=== PATIENT | female | born 1950 | race Caucasian/White ===

== ENCOUNTER 2018-01-10 00:14 | Inpatient (IN) ==
--- NOTE | 2018-01-10 00:39 | ED ---
HPI General Chief complaint: Neck Pain/Injury Stated complaint: transfer Time Seen by Provider: 01/10/18 00:16 Source: patient and EMS Mode of arrival: EMS Limitations: no limitations History of Present Illness HPI narrative: Patient is a 67-year-old female who comes in as a transfer from [facility] due to traumatic injury. She fell at home and was found to have a cervical spine fracture. Patient is demented, but she is awake and alert. She has no complaints currently. She denies numbness or tingling to her extremities. She is in a c-collar. She was accepted as a transfer by Dr. Keita. Related Data Home Medications Medication Instructions Recorded Confirmed albuterol sulfate [ProAir HFA] 2 puff INHALATION Q4-6H PRN 01/10/18 01/10/18 amlodipine 5 mg PO DAILY 01/10/18 01/10/18 aspirin 162.5 mg PO DAILY 01/10/18 01/10/18 citalopram 20 mg PO DAILY 01/10/18 01/10/18 lorazepam 0.5 mg PO DAILY PRN 01/10/18 01/10/18 losartan 100 mg PO DAILY 01/10/18 01/10/18 metformin 500 mg PO DAILY 01/10/18 01/10/18 metoprolol succinate 50 mg PO DAILY 01/10/18 01/10/18 Allergies Allergy/AdvReac Type Severity Reaction Status Date / Time methylprednisolone Allergy UNKOWN Verified 01/10/18 00:28 Review of Systems ROS: all other systems reviewed are negative Constitutional Denies chills and Denies fever(s) ENT Denies dizziness and Denies headache(s) Cardiovascular Denies chest pain and Denies dyspnea Respiratory Denies cough Gastrointestinal Denies abdominal pain Genitourinary Denies dysuria Musculoskeletal Denies myalgias, Denies arthralgias and Denies neck pain Integumentary/Breasts Denies lesions and Denies sores Neurologic Denies focal weakness, Denies numbness and Denies paresthesias [facility] Medical History Medical History Dementia (Acute) Social History Social History Substance History: No History of Abuse Smoking Status: Unknown if ever smoked How Often Do You Have a Drink Containing Alcohol: Monthly or less Immunization History Tetanus Immunization: Unsure Hx Influenza Vaccine This Season: No Exam Narrative Exam Narrative: GENERAL: Awake and alert, no acute distress. SKIN: Focused skin assessment warm/dry. No infection or wounds. HEAD: Atraumatic. Normocephalic. EYES: Pupils equal and round. No scleral icterus. Extraocular movements intact. ENT: Mucous membranes pink and moist. NECK: Trachea midline. No JVD. CARDIOVASCULAR: Regular rate and rhythm. No murmur appreciated. RESPIRATORY: No accessory muscle use. Clear to auscultation. Breath sounds equal bilaterally. GASTROINTESTINAL: Abdomen soft, non-tender, nondistended. MUSCULOSKELETAL: No obvious deformities. No clubbing. No cyanosis. No edema. NEUROLOGICAL: Awake and alert. No obvious cranial nerve deficits. Motor grossly within normal limits. Normal speech. PSYCHIATRIC: Appropriate mood and affect; insight and judgment normal. Course Initial Documented Vital Signs Temperature 98.0 F 01/10/18 00:19 Pulse Rate 77 01/10/18 00:19 Respiratory Rate 16 01/10/18 00:19 Blood Pressure 186/82 H 01/10/18 00:19 Pulse Oximetry 94 L 01/10/18 00:19 Last Documented Vital Signs Temperature 98.2 F 01/10/18 02:52 Pulse Rate 66 01/10/18 02:52 Respiratory Rate 22 01/10/18 02:52 Blood Pressure 145/62 H 01/10/18 02:52 Pulse Oximetry 93 L 01/10/18 02:52 Medical Decision Making MDM Narrative Medical decision making narrative: Patient is a 67-year-old female who comes in as a transfer from [facility]. She is currently wearing a cervical collar. She is moving all of her extremities. CTA of the neck ordered. Patient admitted to the trauma service. Medical Screen Exam Complete: Yes Emergency Medical Condition: Yes Differential Diagnosis Differential Diagnosis: Spine fracture versus nerve injury versus UTI Lab Data Lab results reviewed: Yes I reviewed the patient's lab results. Lab Results 01/10/18 01/10/18 Range/Units 00:00 02:00 Urine Color Yellow (Yellw/Straw) Urine Clarity Cloudy H (Clear) Urine pH 7.0 (5.0-8.5) Ur Specific [place] 1.012 (1.002-1.035) Urine Protein 30 H (Neg-Trace) mg/dL Urine Glucose (UA) Negative (Negative) mg/dL Urine Ketones Negative (Negative) mg/dL Urine Occult Blood Negative (Negative) Urine Nitrate Negative (Negative) Urine Bilirubin Negative (Negative) Urine Urobilinogen 2.0 H (Less than 2) mg/dL Ur Leukocyte Esterase Trace H (Negative) Urine RBC 1 (0-3) /hpf Urine WBC 11 H (0-5) /hpf Ur Squamous Epith Cells 1 (0-5) /hpf Urine Bacteria Occasional H (None) /hpf Urine Mucus Few H (Occasional) /lpf Micro UA Comment Cath-culture ind Ur Microscopic Review Not Reportable Urine Culture Comments Cath-cult indicated Nasal Screen MRSA (PCR) Not detected (Negative) Imaging Data Radiologist's impression: Cervical Spine CT 01/10/18 00:39 CONCLUSION: 1. Comminuted C2 fracture that is essentially a type II but does have a component that extends left laterally through the foramen transversarium. There is also 6 mm of anterior displacement of the dens relative to the C2 vertebral body. 2. Degenerative changes as detailed above. Neck CTA 01/10/18 00:39 CONCLUSION: 1. 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 The right vertebral artery is the sole supply to the basilar artery. It does contain a 50-60% stenosis at its origin. 2. Stenosis involving the right subclavian artery. 3. Patent carotid arteries bilaterally. 4. See the cervical spine fracture discussed in the CT of the cervical spine report. Discharge Plan Discharge Disposition Patient Disposition: 30 Still Patient Discharge Condition Condition: Stable Discharge Details Diagnosis: C2 cervical fracture Physicians Team ED Provider: Heydi Hartmann Attending Provider: Charlotte Keita Other Providers: Yifan Johnson Discharge Interventions Interventions: ED Discharge Assessment Last Done: 01/10/18 02:04 Vital Signs Last Done: 01/10/18 02:04 Status ED Status: Left Department Discharge Information Discharge Date/Time: 01/10/18 01:50
[2018-01-10] MEDS ORDERED: Bisacodyl 10 MG Supp RECTAL PRN (00:49)
[2018-01-10] MEDS ORDERED: Morphine Sulfate Inj 2 MG/ML Vial IV.PUSH PRN (00:55)
[2018-01-10 01:38] LABS: Bacteria,Urine Occasional /hpf; Bilirubin,Urine Negative (Negative); Clarity,Urine Cloudy (Clear); Color,Urine Yellow (Yellw/Straw); Glucose,Urine (UA) Negative (Negative); Leukocyte Esterase,Urine Trace (Negative); Mucus,Urine Few /lpf (Occasional); Nitrite,Urine Negative (Negative); Specific Gravity,Urine 1.012 (1.002-1.035); Squamous Epithelial Cell,Urine 1 /hpf (0-5)
[2018-01-10] MEDS: Sod Chloride 0.9% Inj 1,000 ML IV.CONT SCH ×2 (01:47→15:52)
--- NOTE | 2018-01-10 02:02 | CT ---
EXAM DATE: 01/10/2018 1:38 AM EDT AGE/SEX: 67 years / Female INDICATIONS: Transfer from [place], C-1 and C-2 fracture. C4-7 compression fractures. CLINICAL DATA: This is the patient's initial encounter. Patient reports that signs and symptoms have been present for 1 day and indicates a pain score of 3/10. MEDICAL/SURGICAL HISTORY: Dementia. None. RADIATION DOSE: . CTDI (mGy) ; Reconstructed from previous dataset, no dose COMPARISON: No prior exams available for comparison. TECHNIQUE: Contiguous axial images were obtained using helical multi-row detector technique. Data s ets were acquired after intravenous administration of 74 ml Omnipaque 350 (iohexol) nonionic water-s oluble contrast as a single exam dose.. The volumetric data was post-processed with multiplanar matilda nstruction in oblique axial, sagittal and coronal planes. Using automated exposure control and adjust ment of the mA and/or kV according to patient size, radiation dose was kept as low as reasonably achi evable to obtain optimal diagnostic quality images. DICOM format image data is available electronica [facility] for review and comparison. FINDINGS: Vertebrae: There is an acute comminuted odontoid fracture. The fractures largely a type II fracture but there is a secondary component to the fracture that extends laterally towards the left into the l ateral mass extending through the foramen transverse serum. There is anterior displacement of the den s relative to the C2 vertebral body measuring 6 mm of anterior displacement. The remaining vertebral bodies are intact. Alignment: Normal. No subluxation. Post Contrast: No abnormal areas of enhancement are seen in the cord, dural or paraspinal regions. C2-3: The bony spinal canal is normal in size. No evidence of disc bulge or herniation. The neural foramina are bilaterally patent. C3-4: Mild central bulge. Central canal and neural foramina are patent bilaterally. C4-5: No significant bulge or protrusion. Prominent bony uncovertebral hypertrophy generates narrowi ng of the left lateral recess. Right lateral recess is patent. Mild narrowing of the neural foramina bilaterally. C5-6: There is considerable disc space narrowing with no significant bulge or protrusion. Prominent bony uncovertebral hypertrophy generates narrowing of the lateral recesses bilaterally but more prono unced on the right. Severe left and moderate right neural foraminal narrowing noted.. C6-7: Significant disc space narrowing. No bulge or protrusion. Central canal is patent. Neural fora heather are patent.. C7-T1: The bony spinal canal is normal in size. No evidence of disc bulge or herniation. The neura l foramina are bilaterally patent. CONCLUSION: 1. Comminuted C2 fracture that is essentially a type II but does have a component that extends left laterally through the foramen transversarium. There is also 6 mm of anterior displacement of the dens relative to the C2 vertebral body. 2. Degenerative changes as detailed above. Electronically signed by: Les Baca MD 01/10/2018 2:01 AM EDT
--- NOTE | 2018-01-10 03:42 | CT ---
EXAM DATE: 01/10/2018 3:18 AM EDT AGE/SEX: 67 years / Female INDICATIONS: Transfer form [place]. C-1 and C-2 fracture, C4-7 compression fracture. CLINICAL DATA: This is the patient's initial encounter. Patient reports that signs and symptoms have been present for 1 day and indicates a pain score of 3/10. MEDICAL/SURGICAL HISTORY: Dementia. None. RADIATION DOSE: 10.61 CTDI (mGy) COMPARISON: [facility] [place], [place] CERVICAL SPINE W CONTRAST, 01/10/2018.. . TECHNIQUE: Volumetric scanning was performed using a multirow detector CT scanner during bolus infus ion of 74 ml Omnipaque 350 (iohexol) nonionic water-soluble contrast as a single exam dose. The da ta was postprocessed with a variety of visualization algorithms including full-volume maximum intensi ty projection, multiplanar sliding thin-slab reformation, curved-planar reformation, and surface-rend ering techniques. Using automated exposure control and adjustment of the mA and/or kV according to p atient size, radiation dose was kept as low as reasonably achievable to obtain optimal diagnostic damián lity images. DICOM format image data is available electronically for review and comparison. FINDINGS: Aortic Arch: There is a three-vessel origin of the great vessels from the aorta. No evidence of ost ial narrowing. Calcified plaque involving the origin of the right subclavian artery generates a signi ficant stenosis. Right Carotid: Calcified atherosclerotic plaque involving the carotid bulb and proximal ICA. No murray nal narrowing utilizing NASCET criteria. The extracranial ICA is quite tortuous but patent. The ECA a nd CCA are patent.. Left Carotid: Calcified atherosclerotic plaque involving the carotid bulb and proximal ICA. No lumin al narrowing utilizing NASCET criteria. The extracranial ICA is quite tortuous but patent. The ECA an d CCA are patent.. Vertebrals: The left vertebral artery is chronically occluded. There is intermittent short segment r econstitution within the cervical segments. The right vertebral artery is the sole supply to the basi lar artery. The right vertebral artery shows calcified plaque at its origin generating a 50-60% steno sis.. Percent stenosis is calculated using the diameter of the stenotic region over the diameter of the nor mal distal internal carotid artery. CONCLUSION: 1. Chronic occlusion of the left vertebral artery with short segment reconstitution throughout the c ervical regions. The right vertebral artery is the sole supply to the basilar artery. It does contain a 50-60% stenosis at its origin. 2. Stenosis involving the right subclavian artery. 3. Patent carotid arteries bilaterally. 4. See the cervical spine fracture discussed in the CT of the cervical spine report. Electronically signed by: Les Baca MD 01/10/2018 3:41 AM EDT
[2018-01-10] MEDS ORDERED: Chlorhexidine Gluconate 2% 1 Pack (2 Cloths) TOPICAL PRN (04:00)
[2018-01-10] MEDS: Chlorhexidine Gluconate 2% 1 Pack (2 Cloths) TOPICAL SCH (06:51)
[2018-01-10] MEDS ORDERED: Dextrose 50% in Water 50 ML Vial IV.PUSH PRN (07:12)
--- NOTE | 2018-01-10 07:54 | P.HPCC ---
History of Present Illness Primary Care Physician: Kalia Gomes History of Present Illness: 67 y.o female with hx of dementi and other medical issues -fell yesterday and transferred from the [facility].She underwent a CT scan of the neck showing a C2 fx-she is neuro intact,HD normal. Inpatient Certification: I certify that the inpatient services were ordered in accordance with Medicare regulations governing the order. This includes certification that hospital inpatient services are reasonable and necessary and in the case of services not specified as inpatient-only under 42 CFR 419.22(n), that they are appropriately provided as inpatient services in accordance to with the 2-midnight benchmark under 43 CFR 412.3(e) Estimated Total Length of Stay (Days): 4 Plans for Post Hospital Care: Home Review of Systems All other systems reviewed negative except as stated in HPI [facility] - History History Provided By: Patient - Medical History Medical History: Medical History (Last Reviewed 01/10/18 @ 06:41 by Heydi Hartmann MD) Dementia - Tobacco History Smoking Status: Unknown if ever smoked - Alcohol History How Often Do You Have a Drink Containing Alcohol: Monthly or less - Substance Use History Substance History: No History of Abuse - Immunization History Tetanus Immunization: Unsure Hx Influenza Vaccine This Season: No Medications and Allergies Active Medications: Active Medications Al Hydroxide/Mg Hydroxide (Milk Of Diane Liq) 30 ml PO Q12H PRN PRN Reason: Mild Constipation Albuterol (Duoneb Neb (Prn)) 1 ampul NEB Q2HR NEB PRN PRN Reason: SHORTNESS OF BREATH/WHEEZING Amlodipine Besylate (Norvasc) 5 mg PO DAILY BAUDILIO Bisacodyl (Dulcolax Supp) 10 mg RECTAL DAILY PRN PRN Reason: SEVERE CONSITIPATION Chlorhexidine Gluconate (Chlorhexidine 2% Cloth) 3 pack TOPICAL DAILY@0400 PRN PRN Reason: Extra cloth needed Stop: 01/15/18 03:59 Chlorhexidine Gluconate (Chlorhexidine 2% Cloth) 3 pack TOPICAL DAILY@0400 BAUDILIO Stop: 01/15/18 03:59 Last Admin: 01/10/18 06:51 Dose: 3 pack Citalopram Hydrobromide (Celexa) 20 mg PO DAILY BAUDILIO Dextrose (D50w Vial) 50 ml IV.PUSH UNSCH PRN PRN Reason: PER HYPOGLYCEMIA PROTOCOL Enalaprilat (Vasotec Inj) 1.25 mg IV.PUSH Q6H PRN PRN Reason: SBP>180, DBP>95 Famotidine (Pepcid Pf Inj) 20 mg IV.PUSH Q12HR BAUDILIO Glucagon (Glucagon Inj) 1 mg OTHER PRN PRN PRN Reason: for Hypoglycemia Protocol Sodium Chloride (Ns Inj) 1,000 mls @ 84 mls/hr IV.CONT .[id number] BAUDILIO Last Admin: 01/10/18 01:47 Dose: 84 mls/hr Acetaminophen (Ofirmev Inj) 1,000 mg in 100 mls @ 400 mls/hr IV.SIG Q6H PRN PRN Reason: PAIN 1-10 AND/OR FEVER >101F Last Admin: 01/10/18 07:41 Dose: 400 mls/hr Insulin Human Regular (Novolin R Correctional Sugar Inj) 0 units SQ ACHS BAUDILIO; Protocol Lactulose (Lactulose Liq) 30 ml PO DAILY PRN PRN Reason: SEVERE CONSITIPATION Losartan Potassium (Cozaar) 100 mg PO DAILY [facility] Metoprolol Succinate (Toprol Xl) 50 mg PO DAILY [facility] Morphine Sulfate (Morphine Inj) 2 mg IV.PUSH Q3H PRN PRN Reason: BREAKTHROUGH PAIN Ondansetron HCl (Zofran Inj) 4 mg IV.PUSH Q6H PRN PRN Reason: NAUSEA OR VOMITING Senna/Docusate Sodium (Magalie-Colace) 1 tab PO BID [facility] Sennosides (Senokot) 17.2 mg PO Q12H PRN PRN Reason: Moderate Constipation Sodium Chloride (Ns Flush) 2 ml IV.FLUSH BID [facility] Sodium Chloride (Ns Flush) 2 ml IV.FLUSH PRN PRN PRN Reason: FLUSH AFTER USING IV ACCESS Allergies Allergy/AdvReac Type Severity Reaction Status Date / Time methylprednisolone Allergy UNKOWN Verified 01/10/18 00:28 Home Medications Medication Instructions Recorded Confirmed Type albuterol sulfate [ProAir HFA] 2 puff INHALATION Q4-6H PRN 01/10/18 01/10/18 History amlodipine 5 mg PO DAILY 01/10/18 01/10/18 History aspirin 162.5 mg PO DAILY 01/10/18 01/10/18 History citalopram 20 mg PO DAILY 01/10/18 01/10/18 History lorazepam 0.5 mg PO DAILY PRN 01/10/18 01/10/18 History losartan 100 mg PO DAILY 01/10/18 01/10/18 History metformin 500 mg PO DAILY 01/10/18 01/10/18 History metoprolol succinate 50 mg PO DAILY 01/10/18 01/10/18 History Results - Labs Labs: Urine 01/10/18 Range/Units 00:00 Urine Color Yellow (Yellw/Straw) Urine Clarity Cloudy H (Clear) Urine pH 7.0 (5.0-8.5) Ur Specific [place] 1.012 (1.002-1.035) Urine Protein 30 H (Neg-Trace) mg/dL Urine Glucose (UA) Negative (Negative) mg/dL - Imaging Impressions Cervical Spine CT 01/10/18 00:39 CONCLUSION: 1. Comminuted C2 fracture that is essentially a type II but does have a component that extends left laterally through the foramen transversarium. There is also 6 mm of anterior displacement of the dens relative to the C2 vertebral body. 2. Degenerative changes as detailed above. Neck CTA 01/10/18 00:39 CONCLUSION: 1. 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 The right vertebral artery is the sole supply to the basilar artery. It does contain a 50-60% stenosis at its origin. 2. Stenosis involving the right subclavian artery. 3. Patent carotid arteries bilaterally. 4. See the cervical spine fracture discussed in the CT of the cervical spine report. Exam Vital signs: Vital Signs 01/10/18 00:19 01/10/18 02:04 01/10/18 02:36 Temperature 98.0 F Pulse Rate 77 85 68 Respiratory Rate 16 16 Blood Pressure 186/82 H 169/69 H Pulse Oximetry 94 L 01/10/18 02:52 01/10/18 04:00 Temperature 98.2 F 98.2 F Pulse Rate 66 68 Respiratory Rate 22 34 H Blood Pressure 145/62 H 183/79 H Pulse Oximetry 93 L 92 L Intake & Output 01/09/18 01/10/18 01/10/18 18:59 06:59 18:59 Output Total 800 / 800 Balance -800 / -800 Weight 74.8 kg Output: Urine Amount (Catheter) 800 / 800 Indwelling Urethral Catheter 800 / 800 Other: Weight On Admission 74.8 kg - Routine HEENT Exam Head: Present: normocephalic, atraumatic Eye: Present: EOMI, PERRL ENT: Present: mucous membranes moist, oropharynx clear, nares patent - Routine Neck Exam Present: supple, tenderness, trachea midline - Routine Respiratory Exam Present: CTA bilaterally - Routine Cardiovascular Exam Present: RRR - Routine Abdominal Exam Present: soft, normoactive bowel sounds - Routine Extremities Exam Present: full ROM - Routine Skin Exam Present: intact, dry - Routine Neurological Exam Present: alert, moving all extremities, normal tone, normal speech (GCS 14 - baseline dementia) Caprini VTE Risk Assessment Caprini VTE Risk Assessment: Moderate/High Risk (score >= 2) (c2 fx) Caprini Risk Assessment Model: Point Value = 1 Point Value = 2 Point Value = 3 Point Value = 5 Age 41-60 Minor surgery BMI > 25 kg/m2 Swollen legs Varicose veins or History of unexplained or recurrent spontaneous Oral contraceptives or hormone replacement Sepsis (< 1 month) Serious lung disease, including pneumonia (< 1 month) Abnormal pulmonary function Acute myocardial infarction Congestive heart failure (< 1 month) History of inflammatory bowel disease Medical patient at bed rest Age 61-74 Arthroscopic surgery Major open surgery (> 45 min) Laparoscopic surgery (> 45 min) Malignancy Confined to bed (> 72 hours) Immobilizing plaster cast Central venous access Age >= 75 History of VTE Family history of VTE Factor V Leiden Prothrombin [id number] Lupus anticoagulant Anticardiolipin antibodies Elevated serum homocysteine Heparin-induced thrombocytopenia Other congenital or acquired thrombophilia Stroke (< 1 month) Elective arthroplasty Hip, pelvis, or leg fracture Acute spinal cord injury (< 1 month) Prophylaxis Regimen: Total Risk Factor Score Risk Level Prophylaxis Regimen 0-1 Low Early ambulation 2 Moderate Order ONE of the following: *Sequential Compression Device (SCD) *Heparin 5000 units SQ BID 3-4 Higher Order ONE of the following medications: *Heparin 5000 units SQ TID *Enoxaparin/Lovenox 40 mg SQ daily (WT < 150 kg, CrCl > 30 mL/min) *Enoxaparin/Lovenox 30 mg SQ daily (WT < 150 kg, CrCl > 10-29 mL/min) *Enoxaparin/Lovenox 30 mg SQ BID (WT < 150 kg, CrCl > 30 mL/min) AND/OR *Sequential Compression Device (SCD) 5 or more Highest Order ONE of the following medications: *Heparin 5000 units SQ TID (Preferred with Epidurals) *Enoxaparin/Lovenox 40 mg SQ daily (WT < 150 kg, CrCl > 30 mL/min) *Enoxaparin/Lovenox 30 mg SQ daily (WT < 150 kg, CrCl > 10-29 mL/min) *Enoxaparin/Lovenox 30 mg SQ BID (WT < 150 kg, CrCl > 30 mL/min) AND *Sequential Compression Device (SCD) Assessment and Plan - Assessment and Plan Plan: C2 fx type 2 neuro intact admit ISC pain control Sierra Flores Collar swallow study NS consult H&P: Quality - VTE Deep Vein Thrombosis/Pulmonary Embolism Present on Admission: No
[2018-01-10 08:15] LABS: Baso % (Auto) 0.4 % (0.0-2.0); Eos # (Auto) 0.2 th/mm3 (0.0-0.4); Eos % (Auto) 1.9 % (0.0-4.0); Hematocrit 35.7 % (35.0-46.0); Hemoglobin 12.3 gm/dL (11.6-15.3); Lymph # (Auto) 1.1 th/mm3 (1.0-4.8); Lymph % (Auto) 13.2 % (9.0-44.0); Mean Corpuscular HGB Conc 34.5 % (32.0-36.0); Mean Corpuscular Hemoglobin 29.6 pg (27.0-34.0); Mean Corpuscular Volume 85.7 fL (80.0-100.0); Mean Platelet Volume 8.4 fL (7.0-11.0); Mono # (Auto) 0.7 th/mm3 (0.0-0.9); Mono % (Auto) 8.5 % (0.0-8.0); Neut # (Auto) 6.3 th/mm3 (1.8-7.7); Platelet Count 199 th/mm3 (150-450); Red Blood Count 4.16 mil/mm3 (4.00-5.30); Red Cell Distribution Width 13.6 % (11.6-17.2); White Blood Count 8.2 th/mm3 (4.0-11.0)
[2018-01-10 08:23] LABS: Prothrombin Time 10.6 sec (9.8-11.6)
[2018-01-10] MEDS: Famotidine PF Inj 20 MG/2 ML Vial IV.PUSH SCH ×2 (08:39→21:17)
--- NOTE | 2018-01-10 08:43 | P.CONNS ---
History of Present Illness Service: neurosurgery Consult date: 01/10/18 Requesting Physician: Charlotte Keita Reason for Consult: C2 unstable fracture Primary Care Provider: Kalia Gomes Chief Complaint: neck pain History of Present Illness: 67 y.o female with hx of dementi and other medical issues -fell yesterday and transferred from the [facility]. Suspected LOC. She has no specific recollection of the accident. No witness seizure activity. No tongue bitting. No incontinence fo stool or urine. She underwent a CT scan of the neck shows a C2 fx, with mild displacement of the odontoid process.She is moving well both upper and lower extremities. She reports neck pain. Pain is severe. her paion is located at the craniocervical junction. No radiation of pain to arms or legs. Denies tingling or paresthesias. No incontinence of sool or urinary retention. Neurosurgical consultation requested Review of Systems All other systems reviewed negative except as stated in HPI Constitutional: Denies anorexia, Denies body ache(s), Denies chills, Denies daytime sleepiness, Denies excessive sweating, Denies fatigue, Denies fever(s), Denies headache(s), Denies increased appetite, Denies lack of energy, Denies malaise, Denies night sweats, Denies weakness, Denies weight gain, Denies weight loss, Denies other Eyes: Denies blind spots, Denies blurry vision, Denies bulging eyes, Denies change in vision, Denies double vision, Denies discharge, Denies dry eyes, Denies floaters, Denies irritation, Denies itchy eyes, Denies loss of vision, Denies pain, Denies requires corrective lenses, Denies sensitivity to light, Denies other Ears, Nose, Mouth, and Throat: Denies abnormal hearing, Denies bleeding gums, Denies bad breath, Denies change in voice, Denies dental pain, Denies difficulty swallowing, Denies dizziness, Denies dry mouth, Denies ear discharge , Denies ear pain, Denies facial pain, Denies headache(s), Denies hearing loss, Denies hoarseness, Denies lip swelling, Denies nosebleed, Denies mouth lesions, Denies mouth pain, Denies nasal congestion, Denies nasal discharge, Denies nasal obstruction, Denies nasal trauma, Denies neck lump, Denies neck pain, Denies nose pain, Denies pain with swallowing, Denies poor balance, Denies post nasal drip, Denies ringing in the ears, Denies sinus pain, Denies sinus pressure , Denies sore throat, Denies throat swelling, Denies tongue swelling, Denies other Cardiovascular: Denies chest pain, Denies chest pain at rest, Denies chest pain with activity, Denies excessive sweating, Denies fainting, Denies fast heart rate, Denies foot swelling, Denies generalized swelling, Denies irregular heart rhythm, Denies leg pain with activity, Denies leg sores, Denies leg swelling, Denies lightheadedness, Denies radiating jaw, neck or arm pain, Denies rapid, pounding, or irregular heartbeat, Denies shortness of breath, Denies shortness of breath with activity, Denies shortness of breath when lying down, Denies shortness of breath causing sudden awakening, Denies slow heart rate, Denies other Respiratory: Denies change in phlegm color, Denies chest congestion, Denies cough, Denies coughing up blood, Denies excessive phlegm production, Denies pain on inspiration, Denies pain with cough, Denies shortness of breath, Denies shortness of breath with activity, Denies snoring, Denies stridor, Denies wheezing, Denies other Gastrointestinal: Denies abdominal pain, Denies belching, Denies black, tarry stools, Denies bloating, Denies change in bowel habits, Denies constant urge to pass stool, Denies change in stools, Denies coffee ground vomit, Denies constipation, Denies cramping, Denies difficulty swallowing, Denies excessive passing of gas, Denies feeling full early, Denies heartburn, Denies incontinent of stools, Denies loose stools, Denies nausea, Denies pain with swallowing, Denies vomiting, Denies vomiting blood, Denies other Genitourinary: Denies abnormal periods, Denies abnormal vaginal bleeding, Denies absent period, Denies bleeding between periods, Denies blood in urine, Denies difficulty starting urination, Denies difficulty urinating, Denies dribbling after urination, Denies frequent nighttime urination, Denies genital itching, Denies genital lesions, Denies heavy periods, Denies hot flashes, Denies light periods, Denies nipple discharge, Denies painful intercourse, Denies painful periods, Denies painful urination, Denies pelvic pain, Denies prolapse symptoms, Denies sexual problems, Denies side pain, Denies urinary incontinence, Denies urinary urgency, Denies vaginal discharge, Denies vaginal dryness, Denies vaginal odor, Denies vaginal itching, Denies other Musculoskeletal: Denies abnormal walking, Denies back pain, Denies body aches, Denies decreased muscle mass, Denies deformity, Denies joint pain, Denies joint swelling, Denies limited joint movement, Denies loss of height, Denies muscle cramps, Denies muscle weakness, Denies neck pain, Denies numbness, Denies radiating pain into limb, Denies stiffness, Denies tingling, Denies other PMFSH - History History Provided By: Patient - Medical History Medical History: Medical History (Last Reviewed 01/13/18 @ 13:50 by Yifan Johnson MD) Dementia - Family History Family History: Family History (Last Updated 01/13/18 @ 13:51 by Yifan Johnson MD) Other Unknown family medical history - Tobacco History Smoking Status: Unknown if ever smoked - Alcohol History How Often Do You Have a Drink Containing Alcohol: Monthly or less - Substance Use History Substance History: No History of Abuse - Immunization History Tetanus Immunization: Unsure Hx Influenza Vaccine This Season: No Medications and Allergies Active Medications: Active Medications Al Hydroxide/Mg Hydroxide (Milk Of Diane Neri) 30 ml PO Q12H PRN PRN Reason: Mild Constipation Albuterol (Duoneb Neb (Prn)) 1 ampul NEB Q2HR NEB PRN PRN Reason: SHORTNESS OF BREATH/WHEEZING Amlodipine Besylate (Norvasc) 5 mg PO DAILY [facility] Bisacodyl (Dulcolax Supp) 10 mg RECTAL DAILY PRN PRN Reason: SEVERE CONSITIPATION Chlorhexidine Gluconate (Chlorhexidine 2% Cloth) 3 pack TOPICAL DAILY@0400 PRN PRN Reason: Extra cloth needed Stop: 01/15/18 03:59 Chlorhexidine Gluconate (Chlorhexidine 2% Cloth) 3 pack TOPICAL DAILY@0400 [facility] Stop: 01/15/18 03:59 Last Admin: 01/10/18 06:51 Dose: 3 pack Citalopram Hydrobromide (Celexa) 20 mg PO DAILY [facility] Dextrose (D50w Vial) 50 ml IV.PUSH UNSCH PRN PRN Reason: PER HYPOGLYCEMIA PROTOCOL Enalaprilat (Vasotec Inj) 1.25 mg IV.PUSH Q6H PRN PRN Reason: SBP>180, DBP>95 Famotidine (Pepcid Pf Inj) 20 mg IV.PUSH Q12HR [facility] Glucagon (Glucagon Inj) 1 mg OTHER PRN PRN PRN Reason: for Hypoglycemia Protocol Sodium Chloride (Ns Inj) 1,000 mls @ 84 mls/hr IV.CONT .[id number] [facility]UD[facility] Last Admin: 01/10/18 01:47 Dose: 84 mls/hr Acetaminophen (Ofirmev Inj) 1,000 mg in 100 mls @ 400 mls/hr IV.SIG Q6H PRN PRN Reason: PAIN 1-10 AND/OR FEVER >101F Last Infusion: 01/10/18 08:09 Dose: Infused Insulin Human Regular (Novolin R Correctional Sugar Inj) 0 units SQ ACHS [facility]; Protocol Lactulose (Lactulose Liq) 30 ml PO DAILY PRN PRN Reason: SEVERE CONSITIPATION Losartan Potassium (Cozaar) 100 mg PO DAILY [facility] Metoprolol Succinate (Toprol Xl) 50 mg PO DAILY [facility] Morphine Sulfate (Morphine Inj) 2 mg IV.PUSH Q3H PRN PRN Reason: BREAKTHROUGH PAIN Ondansetron HCl (Zofran Inj) 4 mg IV.PUSH Q6H PRN PRN Reason: NAUSEA OR VOMITING Senna/Docusate Sodium (Magalie-Colace) 1 tab PO BID [facility] Sennosides (Senokot) 17.2 mg PO Q12H PRN PRN Reason: Moderate Constipation Sodium Chloride (Ns Flush) 2 ml IV.FLUSH BID [facility] Sodium Chloride (Ns Flush) 2 ml IV.FLUSH PRN PRN PRN Reason: FLUSH AFTER USING IV ACCESS Allergies Allergy/AdvReac Type Severity Reaction Status Date / Time methylprednisolone Allergy UNKOWN Verified 01/10/18 00:28 Home Medications Medication Instructions Recorded Confirmed Type albuterol sulfate [ProAir HFA] 2 puff INHALATION Q4-6H PRN 01/10/18 01/10/18 History amlodipine 5 mg PO DAILY 01/10/18 01/10/18 History aspirin 162.5 mg PO DAILY 01/10/18 01/10/18 History citalopram 20 mg PO DAILY 01/10/18 01/10/18 History lorazepam 0.5 mg PO DAILY PRN 01/10/18 01/10/18 History losartan 100 mg PO DAILY 01/10/18 01/10/18 History metformin 500 mg PO DAILY 01/10/18 01/10/18 History metoprolol succinate 50 mg PO DAILY 01/10/18 01/10/18 History Exam Vital signs: Vital Signs 01/10/18 00:19 01/10/18 02:04 01/10/18 02:36 Temperature 98.0 F Pulse Rate 77 85 68 Respiratory Rate 16 16 Blood Pressure 186/82 H 169/69 H Pulse Oximetry 94 L 01/10/18 02:52 01/10/18 04:00 01/10/18 08:00 Temperature 98.2 F 98.2 F Pulse Rate 66 68 64 Respiratory Rate 22 34 H Blood Pressure 145/62 H 183/79 H Pulse Oximetry 93 L 92 L Intake & Output 01/09/18 01/10/18 01/10/18 18:59 06:59 18:59 Intake Total 100 / 100 Output Total 800 / 800 Balance -700 / -700 Weight 74.8 kg Intake: IV 100 / 100 Ofirmev Inj 1,000 mg In 100 ml 100 / 100 @ 400 mls/hr IV.SIG Q6H PRN Rx# :[id number] Output: Urine Amount (Catheter) 800 / 800 Indwelling Urethral Catheter 800 / 800 Other: Weight On Admission 74.8 kg Narrative: The patient is alert, awake. Comfortable, in no acute distress. Speech is fluent. Cranial nerve examination: pupils to be equal, round and reactive to light. Extra-ocular movements are intact. Facial motor and sensory function are normal and symmetrical. Gross hearing appears intact. Sternocleidomastoid and trapezius muscles are symmetrical. Other cranial nerves are intact. Neck is soft and supple with a good range of motion without pain. Muscle strength is normal in all muscle groups of both upper and lower extremities. Sensory examination is intact to light touch and pin prick in both the upper and lower extremities. Deep tendon reflexes are symmetrical in both upper and lower extremities. There is a bilateral plantar flexion response. Cerebellar examination is unremarkable, without deficits. Lungs are clear Heart regular rhythm is regular rate Skin warm and dry Results - Laboratory Findings CBC and BMP: 01/11/18 03:21 01/11/18 03:50 Abnormal lab findings: Abnormal Labs 01/10/18 01/10/18 00:00 08:00 Neut % (Auto) 76.0 H Divide % (Auto) 8.5 H Urine Clarity Cloudy H Urine Protein 30 H Urine Urobilinogen 2.0 H Ur Leukocyte Esterase Trace H Urine WBC 11 H Urine Bacteria Occasional H Urine Mucus Few H Assessment and Plan - Plan I reviewed radiological studies Cervical Spine CT 01/10/18 00:39 CONCLUSION: 1. Comminuted C2 fracture that is essentially a type II but does have a component that extends left laterally through the foramen transversarium. There is also 6 mm of anterior displacement of the dens relative to the C2 vertebral body. 2. Degenerative changes as detailed above. Neck CTA 01/10/18 00:39 CONCLUSION: 1. 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 The right vertebral artery is the sole supply to the basilar artery. It does contain a 50-60% stenosis at its origin. 2. Stenosis involving the right subclavian artery. 3. Patent carotid arteries bilaterally. 4. See the cervical spine fracture discussed in the CT of the cervical spine report. Neuro: neuro checks in a serial fashion. Bracing C spine with [place] J collar. Her fracture is unstable. Given her condition at risk for further injury, I recommend consideration of a halo brace fpr stabilization of her spine. Elisa discussed the [id number] details of the surgical procedure, its indications, alternatives, risks, and potential complications. Risks and potential complications include, but are not limited to, infection, blood loss, CSF leak, partial or complete loss of sight in one or both eyes, paresis, paralysis, permanent pain or difficulty swallowing, loss of bowel or bladder function, complications from anesthesia, blood clot, stroke, myocardial infarction, or even . The possibility of nonoperative treatment has been offered. Pulmonary: aggressive pulmonary toilette, nasotracheal suction, and breathing treatments with nebulizers. Daily PT and OT Renal: Continue to monitor closely urine output, BUN and creatinine Endocrine: Continue to Monitor serial Acu checks and SSI as needed in detail ID continue to monitor for signs of infection Continue Protonix for stress ulcer prophylaxis Continue Juan José hose and SCD's for DVT prophylaxis Caprini VTE Risk Assessment Caprini VTE Risk Assessment: Moderate/High Risk (score >= 2) (c2 fx) Caprini Risk Assessment Model: Point Value = 1 Point Value = 2 Point Value = 3 Point Value = 5 Age 41-60 Minor surgery BMI > 25 kg/m2 Swollen legs Varicose veins or History of unexplained or recurrent spontaneous Oral contraceptives or hormone replacement Sepsis (< 1 month) Serious lung disease, including pneumonia (< 1 month) Abnormal pulmonary function Acute myocardial infarction Congestive heart failure (< 1 month) History of inflammatory bowel disease Medical patient at bed rest Age 61-74 Arthroscopic surgery Major open surgery (> 45 min) Laparoscopic surgery (> 45 min) Malignancy Confined to bed (> 72 hours) Immobilizing plaster cast Central venous access Age >= 75 History of VTE Family history of VTE Factor V Leiden Prothrombin [id number] Lupus anticoagulant Anticardiolipin antibodies Elevated serum homocysteine Heparin-induced thrombocytopenia Other congenital or acquired thrombophilia Stroke (< 1 month) Elective arthroplasty Hip, pelvis, or leg fracture Acute spinal cord injury (< 1 month) Prophylaxis Regimen: Total Risk Factor Score Risk Level Prophylaxis Regimen 0-1 Low Early ambulation 2 Moderate Order ONE of the following: *Sequential Compression Device (SCD) *Heparin 5000 units SQ BID 3-4 Higher Order ONE of the following medications: *Heparin 5000 units SQ TID *Enoxaparin/Lovenox 40 mg SQ daily (WT < 150 kg, CrCl > 30 mL/min) *Enoxaparin/Lovenox 30 mg SQ daily (WT < 150 kg, CrCl > 10-29 mL/min) *Enoxaparin/Lovenox 30 mg SQ BID (WT < 150 kg, CrCl > 30 mL/min) AND/OR *Sequential Compression Device (SCD) 5 or more Highest Order ONE of the following medications: *Heparin 5000 units SQ TID (Preferred with Epidurals) *Enoxaparin/Lovenox 40 mg SQ daily (WT < 150 kg, CrCl > 30 mL/min) *Enoxaparin/Lovenox 30 mg SQ daily (WT < 150 kg, CrCl > 10-29 mL/min) *Enoxaparin/Lovenox 30 mg SQ BID (WT < 150 kg, CrCl > 30 mL/min) AND *Sequential Compression Device (SCD) Further recommendations will be provided depending on the patient's clinical evaluation and follow up studies. Discussed in detail with dr Keita who is in agreement
[2018-01-10 08:52] LABS: Calcium 8.9 mg/dL (8.5-10.1); Carbon Dioxide 29.9 meq/L (21.0-32.0)
[2018-01-10] MEDS: Insulin NovoLIN Regular Correctional Sugar Inj SQ SCH ×4 (09:52→21:16)
[2018-01-10] MEDS: Citalopram 20 MG Tablet PO SCH (10:12)
[2018-01-10] MEDS: amLODIPine 5 MG Tablet PO SCH (10:13)
[2018-01-10] MEDS: Senna/Docusate Sodium 8.6/50 MG Tablet PO SCH ×2 (10:13→21:17)
[2018-01-10] MEDS ORDERED: Lidocaine 1%/Epinephrine 1:100,000 Inj 50 ML Vial ONE (13:50)
[2018-01-10] MEDS ORDERED: Lidocaine PF 1% Inj 5 ML Syringe INFILTRATN ONE (14:20)
--- NOTE | 2018-01-10 15:28 | P.OP ---
Preoperative Diagnosis: C2 unstable odontoid fracture Postoperative Diagnosis: C2 unstable odontoid fracture Date of procedure: 01/10/18 Procedure: Placement of halo brace Anesthesia: MAC Surgeon: Yifan Johnson MD Outreach Counselor: ANNAMARIA Pathology: none sent Operation and Findings: INDICATIONS The patient is a 78-year-old female who suffered a fall and presented with severe neck pain. She had a displaced unstable fractures of C2 odontoid process. There was significant displacement of the odontoid. The fractures was unstable. Placement of halo brace was indicated. I have discussed the [id number] details of the procedure, its indications, alternatives, risks and potential complications with the patient including but not limited to the risk of infection, hemorrhage, paralysis, stroke, heart attack, even vegetative state or even the possibility of . The patient fully understands. All her questions were answered. No guarantees were given. She voiced requesting the procedure and provided informed consent. She has been offered the alternative of not having aggressive management. DETAILS OF THE SURGICAL PROCEDURE The entire procedure was performed with the patient wearing ahard cervical collar and the cervical spine in a neutral position. Whenever movement was indicated, the patient was carefully log-rolled awake. Initially the patient was log-rolled and a vest was placed on the patient's thorax. The vest was tightly secured. Then keeping the head in a neutral position, the bilateral parieto-occipital area was shaved and prepped with Betadine. The bilateral frontal area was prepped with Betadine. 1% lidocaine was used to numb the skull. A halo was brought to the patient's head and carefully secured in a symmetrical position using the torque wrench calibrated at the pressure of 8 pounds per square foot. Once all pins were secured to the patient's skull, four posts were used to connect the halo to the vest and all the connections secured with a torque wrench. The patient's cervical spine was kept in a neutral position. X-ray of the cervical spine was ordered at the end of the procedure. The patient tolerated the procedure well. There were no intraoperative complications.
--- NOTE | 2018-01-10 19:49 | XR ---
EXAM DATE: 01/10/2018 7:45 PM EDT AGE/SEX: 67 years / Female INDICATIONS: Halo placement. CLINICAL DATA: This is the patient's subsequent encounter. Patient reports that signs and symptoms h ave been present for 3 days and indicates a pain score of Nonresponsive. MEDICAL/SURGICAL HISTORY: None. None. COMPARISON: [facility] – [place], [place] CERVICAL SPINE W CONTRAST, 01/10/2018. . FINDINGS: There is a fracture of the dens with posterior displacement of the C2 vertebral body in relationship to the dens and C1.. CONCLUSION: Malalignment at the dens. This was seen on the prior CT examination. Electronically signed by: Jack Yoo MD 01/10/2018 7:47 PM EDT
[2018-01-10] MEDS: Morphine Inj 4 MG/ML Vial IV.PUSH PRN (21:17)
[2018-01-11] MEDS: Sod Chloride 0.9% Inj 1,000 ML IV.CONT SCH ×2 (01:19→15:49)
[2018-01-11 04:24] LABS: Baso % (Auto) 0.4 % (0.0-2.0); Eos # (Auto) 0.2 th/mm3 (0.0-0.4); Eos % (Auto) 4.1 % (0.0-4.0); Hematocrit 33.2 % (35.0-46.0); Hemoglobin 11.1 gm/dL (11.6-15.3); Lymph % (Auto) 20.5 % (9.0-44.0); Mean Corpuscular HGB Conc 33.5 % (32.0-36.0); Mean Corpuscular Hemoglobin 29.6 pg (27.0-34.0); Mean Corpuscular Volume 88.4 fL (80.0-100.0); Mean Platelet Volume 8.1 fL (7.0-11.0); Mono # (Auto) 0.5 th/mm3 (0.0-0.9); Platelet Count 149 th/mm3 (150-450); Red Blood Count 3.76 mil/mm3 (4.00-5.30); Red Cell Distribution Width 13.5 % (11.6-17.2); White Blood Count 4.8 th/mm3 (4.0-11.0)
[2018-01-11 04:49] LABS: Calcium 8.2 mg/dL (8.5-10.1); Carbon Dioxide 27.9 meq/L (21.0-32.0); Potassium 3.4 meq/L (3.5-5.1)
[2018-01-11] MEDS ORDERED: Potassium Phosphate 500 MG Soluble Tablet PO PRN ×2 (08:00)
[2018-01-11] MEDS ORDERED: Potassium Chloride 25 MEQ Effervescent Tablet PO PRN (08:00)
[2018-01-11] MEDS ORDERED: Magnesium Sulfate Inj 2 GM in Sodium Chlor 0.9% Inj 96 ML IV.SIG PRN (08:00)
[2018-01-11] MEDS ORDERED: Potassium Phosphate Inj 30 MMOL in Sodium Chlor 0.9% Inj 250 ML IV.SIG PRN (08:00)
[2018-01-11] MEDS ORDERED: Magnesium Sulfate Inj 4 GM in Sodium Chlor 0.9% Inj 92 ML IV.SIG PRN (08:00)
[2018-01-11] MEDS ORDERED: Potassium Chlor 20 mEq Premix 20 MEQ/100 ML PIGGYBACK IV.SIG PRN ×2 (08:00)
[2018-01-11] MEDS ORDERED: Sodium Phosphate Inj 30 MMOL in Sodium Chlor 0.9% Inj 250 ML IV.SIG PRN (08:00)
[2018-01-11] MEDS ORDERED: Potassium Chlor 40 mEq Premix 40 MEQ/100 ML PIGGYBACK IV.SIG PRN (08:00)
[2018-01-11] MEDS ORDERED: Magnesium Oxide 400 MG Tablet PO PRN (08:00)
--- NOTE | 2018-01-11 09:24 | P.PNNS ---
Subjective Interval history: Patient went to OR with Dr. Johnson for halo placement. No complications reported. She reports having a good night. She denies any significant pain or other issues this morning. Physical Exam Vital signs: Vital Signs 01/10/18 12:15 01/10/18 14:42 01/10/18 15:00 Temperature 98.5 F 97.7 F Pulse Rate 65 77 77 Respiratory Rate 15 15 20 Blood Pressure 157/74 H 108/55 L 97/55 L Pulse Oximetry 94 L 100 100 01/10/18 15:10 01/10/18 16:00 01/10/18 16:38 Temperature 98.0 F 98.1 F Pulse Rate 77 72 Respiratory Rate 15 24 Blood Pressure 118/56 L 153/79 H Pulse Oximetry 100 98 98 01/10/18 20:00 01/10/18 21:19 01/11/18 00:00 Temperature 98.9 F 98.1 F Pulse Rate 70 58 L Respiratory Rate 23 16 15 Blood Pressure 118/57 L 148/89 H Pulse Oximetry 98 99 01/11/18 00:15 01/11/18 01:37 01/11/18 02:00 Temperature Pulse Rate 54 L Respiratory Rate 14 22 Blood Pressure Pulse Oximetry 01/11/18 04:00 01/11/18 06:00 01/11/18 08:35 Temperature 98.4 F Pulse Rate 57 L 58 L Respiratory Rate 15 Blood Pressure 176/76 H Pulse Oximetry 98 98 Intake & Output 01/10/18 01/11/18 01/11/18 18:59 06:59 18:59 Intake Total 1100 / 1100 100 / 100 Output Total 2700 / 2700 700 / 700 Balance -1600 / -1600 -600 / -600 Weight 75.3 kg Intake: IV 1100 / 1100 100 / 100 NS Inj 1,000 ML @ 84 mls/hr IV. 1000 / 1000 CONT .[id number] [facility] Rx#:[id number] Ofirmev Inj 1,000 mg In 100 ml 100 / 100 100 / 100 @ 400 mls/hr IV.SIG Q6H PRN Rx# :[id number] Oral 0 / 0 Output: Urine Amount (Catheter) 2700 / 2700 700 / 700 Indwelling Urethral Catheter 2700 / 2700 700 / 700 - Routine Neurological Exam Awake and alert. Answers questions appropriately. Follows commands 4, appropriate strength. Halo vest in place, no obvious malalignment or poor fitment. - Urinary Catheter Management Indwelling Urethral Catheter Cath placed during this visit: yes Reason for continuing: Hourly intake/output Insertion date: 01/10/18 Insertion time: 00:00 Assessment and Plan - Plan I reviewed radiological studies Cervical Spine CT 01/10/18 00:39 CONCLUSION: 1. Comminuted C2 fracture that is essentially a type II but does have a component that extends left laterally through the foramen transversarium. There is also 6 mm of anterior displacement of the dens relative to the C2 vertebral body. 2. Degenerative changes as detailed above. Neck CTA 01/10/18 00:39 CONCLUSION: 1. 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 The right vertebral artery is the sole supply to the basilar artery. It does contain a 50-60% stenosis at its origin. 2. Stenosis involving the right subclavian artery. 3. Patent carotid arteries bilaterally. 4. See the cervical spine fracture discussed in the CT of the cervical spine report. Neck fluoroscopy 01/10/18 ~7pm Persistent displacement of fracture fragment, but no new malalignment Neuro: neuro checks in a serial fashion. Continue halo vest. Will need serial x-rays over time to ensure that her fracture remains stable and that the odontoid fragment achieves union or stable nonunion. Pulmonary: aggressive pulmonary toilette, nasotracheal suction, and breathing treatments with nebulizers. Daily PT and OT, can advance activity as tolerated GI: Remains n.p.o., awaiting dysphagia evaluation from speech therapy prior to advancing her diet Renal: Continue to monitor closely urine output, BUN and creatinine Endocrine: Continue to Monitor serial Acu checks and SSI as needed in detail ID continue to monitor for signs of infection Continue Protonix for stress ulcer prophylaxis Continue Juan José hose and SCD's for DVT prophylaxis Further recommendations will be provided depending on the patient's clinical evaluation and follow up studies.
[2018-01-11] MEDS: Citalopram 20 MG Tablet PO SCH (09:47)
[2018-01-11] MEDS: Senna/Docusate Sodium 8.6/50 MG Tablet PO SCH ×2 (09:47→21:00)
[2018-01-11] MEDS: amLODIPine 5 MG Tablet PO SCH (09:47)
[2018-01-11] MEDS: Famotidine PF Inj 20 MG/2 ML Vial IV.PUSH SCH ×2 (09:47→21:00)
[2018-01-11] MEDS: Insulin NovoLIN Regular Correctional Sugar Inj SQ SCH ×4 (09:56→21:20)
[2018-01-11] MEDS ORDERED: LORazepam 0.5 MG Tablet PO PRN (12:21)
--- NOTE | 2018-01-11 15:54 | P.CONPSY ---
Provisional Diagnosis Admission Date: January 10, 2018 00:39 [place] I.: Dementia with behavioral disturbance History of Present Illness Service: Psychiatry Consult date: 01/11/18 Requesting Physician: Charlotte Keita Reason for Consult: Assessment Primary Care Provider: Kalia Gomes History of Present Illness: Patient is a 67-year-old white female admitted from a local hospital after a fall and a fractured C2. Asked to see due to patient's history of dementia and some behavioral issues. Patient seen in her room with RN. Patient does have her a little. Patient is alert diffusely disorganized to place time and situation. She has no specific recollection of the accident either. Staff states that she did become somewhat agitated last night and early this morning but she is calmer now. However I question if there may be some more behaviors noted towards evening and night tonight. With the fragility of her compliance and feels some scheduled medications may help with her to tolerate the uncomfortableness of the restrictions of that device. I would recommend Seroquel 25 mg 4 times daily for period of time to help control behaviors Review of Systems Please see MedSur assessments PMFSH - History History Provided By: Patient - Medical History Medical History: Medical History (Last Reviewed 01/11/18 @ 09:38 by Blessing Caldwell, BEATER ROOM SUPERVISOR) Dementia - Tobacco History Second Hand Smoke Exposure: No Smoking Status: Never smoker - Alcohol History How Often Do You Have a Drink Containing Alcohol: Monthly or less - Substance Use History Substance History: No History of Abuse - Immunization History Tetanus Immunization: Unsure Hx Influenza Vaccine This Season: Yes Medications and Allergies Active Medications: Active Medications Al Hydroxide/Mg Hydroxide (Milk Of Diane Neri) 30 ml PO Q12H PRN PRN Reason: Mild Constipation Albuterol (Duoneb Neb (Prn)) 1 ampul NEB Q2HR NEB PRN PRN Reason: SHORTNESS OF BREATH/WHEEZING Amlodipine Besylate (Norvasc) 5 mg PO DAILY [facility]UD[facility]IO Last Admin: 01/11/18 09:47 Dose: 5 mg Bisacodyl (Dulcolax Supp) 10 mg RECTAL DAILY PRN PRN Reason: SEVERE CONSITIPATION Chlorhexidine Gluconate (Chlorhexidine 2% Cloth) 3 pack TOPICAL DAILY@0400 PRN PRN Reason: Extra cloth needed Stop: 01/15/18 03:59 Chlorhexidine Gluconate (Chlorhexidine 2% Cloth) 3 pack TOPICAL DAILY@0400 [facility] Stop: 01/15/18 03:59 Last Admin: 01/10/18 06:51 Dose: 3 pack Citalopram Hydrobromide (Celexa) 20 mg PO DAILY [facility] Last Admin: 01/11/18 09:47 Dose: 20 mg Dextrose (D50w Vial) 50 ml IV.PUSH UNSCH PRN PRN Reason: PER HYPOGLYCEMIA PROTOCOL Enalaprilat (Vasotec Inj) 1.25 mg IV.PUSH Q6H PRN PRN Reason: SBP>180, DBP>95 Famotidine (Pepcid Pf Inj) 20 mg IV.PUSH Q12HR [facility] Last Admin: 01/11/18 09:47 Dose: 20 mg Glucagon (Glucagon Inj) 1 mg OTHER PRN PRN PRN Reason: for Hypoglycemia Protocol Sodium Chloride (Ns Inj) 1,000 mls @ 84 mls/hr IV.CONT .[id number] [facility] Last Admin: 01/11/18 01:19 Dose: 84 mls/hr Acetaminophen (Ofirmev Inj) 1,000 mg in 100 mls @ 400 mls/hr IV.SIG Q6H PRN PRN Reason: PAIN 1-10 AND/OR FEVER >101F Last Infusion: 01/11/18 01:37 Dose: Infused Magnesium Sulfate Inj 4 gm/ (Sodium Chloride) 100 mls @ 50 mls/hr IV.SIG UNSCH PRN PRN Reason: For Magnesium 0.9 - 1.1 mg/dL Magnesium Sulfate Inj 2 gm/ (Sodium Chloride) 100 mls @ 50 mls/hr IV.SIG UNSCH PRN PRN Reason: For Magnesium 1.2 - 1.6 mg/dL Potassium Chloride (Kcl 40 Meq Premix Inj) 40 meq in 100 mls @ 25 mls/hr IV.SIG Q2H PRN PRN Reason: For Potassium 2.8 - 3.2 mEq/L Potassium Chloride (Kcl 20 Meq Premix Inj) 20 meq in 100 mls @ 50 mls/hr IV.SIG Q2H PRN PRN Reason: For Potassium 3.3 - 3.5 mEq/L Potassium Phosphate 30 mmol/ (Sodium Chloride) 260 mls @ 42 mls/hr IV.SIG UNSCH PRN PRN Reason: SEE LABEL COMMENTS Sodium Phosphate 30 mmol/ (Sodium Chloride) 260 mls @ 42 mls/hr IV.SIG UNSCH PRN PRN Reason: For Phosphorus < 2.5 mg/dL Potassium Chloride (Kcl 20 Meq Premix Inj) 20 meq in 100 mls @ 50 mls/hr IV.SIG Q2H PRN PRN Reason: For Potassium 2.8 - 3.2 mEq/L Insulin Human Regular (Novolin R Correctional Sugar Inj) 0 units SQ ACHS [facility]; Protocol Last Admin: 01/11/18 12:42 Dose: Not Given Lactulose (Lactulose Liq) 30 ml PO DAILY PRN PRN Reason: SEVERE CONSITIPATION Lorazepam (Ativan) 0.5 mg PO TID PRN PRN Reason: AGITATION Last Admin: 01/11/18 12:41 Dose: 0.5 mg Losartan Potassium (Cozaar) 100 mg PO DAILY [facility] Last Admin: 01/11/18 09:46 Dose: 100 mg Magnesium Oxide (Mag-Ox) 800 mg PO UNSCH PRN PRN Reason: For Magnesium 1.2 - 1.6 mg/dL Metoprolol Succinate (Toprol Xl) 50 mg PO DAILY [facility] Last Admin: 01/11/18 09:47 Dose: 50 mg Morphine Sulfate (Morphine Inj) 2 mg IV.PUSH Q3H PRN PRN Reason: BREAKTHROUGH PAIN Last Admin: 01/10/18 21:17 Dose: 2 mg Ondansetron HCl (Zofran Inj) 4 mg IV.PUSH Q6H PRN PRN Reason: NAUSEA OR VOMITING Potassium Bicarb/Potassium Chloride (K-Lyte Cl Eff) 50 meq PO UNSCH PRN PRN Reason: For Potassium 3.3 - 3.5 mEq/L Potassium Phosphate (K-Phos Original) 2,000 mg PO Q4H PRN PRN Reason: Phosphorus Less Than 2.5 mg/dL Potassium Phosphate (K-Phos Original) 2,000 mg PO UNSCH PRN PRN Reason: SEE LABEL COMMENTS Senna/Docusate Sodium (Magalie-Colace) 1 tab PO BID [facility] Last Admin: 01/11/18 09:47 Dose: 1 tab Sennosides (Senokot) 17.2 mg PO Q12H PRN PRN Reason: Moderate Constipation Sodium Chloride (Ns Flush) 2 ml IV.FLUSH BID [facility] Last Admin: 01/10/18 21:17 Dose: 2 ml Sodium Chloride (Ns Flush) 2 ml IV.FLUSH PRN PRN PRN Reason: FLUSH AFTER USING IV ACCESS Allergies Allergy/AdvReac Type Severity Reaction Status Date / Time methylprednisolone Allergy UNKOWN Verified 01/10/18 00:28 Home Medications Medication Instructions Recorded Confirmed Type albuterol sulfate [ProAir HFA] 2 puff INHALATION Q4-6H PRN 01/10/18 01/10/18 History amlodipine 5 mg PO DAILY 01/10/18 01/10/18 History aspirin 162.5 mg PO DAILY 01/10/18 01/10/18 History citalopram 20 mg PO DAILY 01/10/18 01/10/18 History lorazepam 0.5 mg PO DAILY PRN 01/10/18 01/10/18 History losartan 100 mg PO DAILY 01/10/18 01/10/18 History metformin 500 mg PO DAILY 01/10/18 01/10/18 History metoprolol succinate 50 mg PO DAILY 01/10/18 01/10/18 History Exam Vital signs: Vital Signs 01/10/18 16:00 01/10/18 16:38 01/10/18 20:00 Temperature 98.1 F 98.9 F Pulse Rate 72 70 Respiratory Rate 24 23 Blood Pressure 153/79 H 118/57 L Pulse Oximetry 98 98 98 01/10/18 21:19 01/11/18 00:00 01/11/18 00:15 Temperature 98.1 F Pulse Rate 58 L Respiratory Rate 16 15 14 Blood Pressure 148/89 H Pulse Oximetry 99 01/11/18 01:37 01/11/18 02:00 01/11/18 04:00 Temperature 98.4 F Pulse Rate 54 L 57 L Respiratory Rate 22 15 Blood Pressure 176/76 H Pulse Oximetry 98 01/11/18 06:00 01/11/18 08:00 01/11/18 08:35 Temperature 97.9 F Pulse Rate 58 L 54 L Respiratory Rate 16 Blood Pressure 134/63 Pulse Oximetry 97 98 01/11/18 10:00 01/11/18 12:00 01/11/18 14:00 Temperature Pulse Rate 60 72 88 Respiratory Rate Blood Pressure 157/77 H Pulse Oximetry 94 L Intake & Output 01/10/18 01/11/18 01/11/18 18:59 06:59 18:59 Intake Total 1100 / 1100 100 / 100 Output Total 2700 / 2700 700 / 700 Balance -1600 / -1600 -600 / -600 Weight 75.3 kg Intake: IV 1100 / 1100 100 / 100 NS Inj 1,000 ML @ 84 mls/hr IV. 1000 / 1000 CONT .[id number] [facility] Rx#:[id number] Ofirmev Inj 1,000 mg In 100 ml 100 / 100 100 / 100 @ 400 mls/hr IV.SIG Q6H PRN Rx# :[id number] Oral 0 / 0 Output: Urine Amount (Catheter) 2700 / 2700 700 / 700 Indwelling Urethral Catheter 2699 / 2699 700 / 700 Narrative: Patient laying in bed with compliance applied to head and neck Mental Status Examination Appearance: Appropriate Consciousness: Alert Orientation: Person Motor Activity: Other (Patient laying in bed) Speech: Unremarkable Language: Adequate Fund of Knowledge: Inadequate Attention and Concentration: Easily distracted Memory: Impaired Mood: Other (Somewhat restricted) Affect: Other (Intensity) Thought Process & Associations: Linear Thought Content: Appropriate Hallucination Type: None Delusion Type: None Suicidal Ideation: No Suicidal Plan: No Suicidal Intention: No Homicidal Ideation: No Homicidal Plan: No Homicidal Intention: No Insight: Poor Judgment: Poor Assessment and Plan - Assessment (1) Dementia with behavioral disturbance Code(s): F03.91 - Unspecified dementia with behavioral disturbance Status: Acute - Plan Plan: Estimated LOS: [] days Patient's dementia is noted. Would suggest Seroquel 25 mg 4 times daily to help maintain appropriate behavior in a lower risk of damage. We will follow on an as-needed basis Justification for Continued Inpatient Stay: Please see treatment team Discharge Planning: Please see treatment team (1) Dementia with behavioral disturbance Qualifiers: Dementia type: Alzheimer's disease Alzheimer's disease onset: other onset Qualified Code(s): G30.8 - Other Alzheimer's disease; F02.81 - Dementia in other diseases classified elsewhere with behavioral disturbance
[2018-01-11] MEDS: Morphine Inj 4 MG/ML Vial IV.PUSH PRN (16:15)
--- NOTE | 2018-01-11 16:32 | ECG ---
Date Performed: 01/10/2018 Time Performed: 12:48:47 PTAGE: 67 years EKG: Sinus rhythm LOW QRS VOLTAGE IN PRECORDIAL LEADS PATTERN CONSISTENT WITH PULMONARY DISEASE NONSPECIFIC T-WAVE ABN ORMALITY ABNORMAL ECG NO PREVIOUS TRACING DOCTOR: Brendan Galicia Interpretating Date/Time 01/11/2018 16:30:50
[2018-01-11] MEDS: QUEtiapine 25 MG Tablet PO SCH ×2 (18:31→21:00)
--- NOTE | 2018-01-11 20:22 | P.PNCC ---
Subjective Brief History: S/P fall 24 Hour Review/Hospital Course: 01/11/18 Seen this AM during Trauma rounds S/P halo placement Pain controlled on IV Ofirmev This afternoon patient became agitated with visual disturbances Psych consult requested for medication recommendations Objective Vital Signs / I&O: Vital Signs 01/10/18 21:19 01/11/18 00:00 01/11/18 00:15 Temperature 98.1 F Pulse Rate 58 L Respiratory Rate 16 15 14 Blood Pressure 148/89 H Pulse Oximetry 99 01/11/18 01:37 01/11/18 02:00 01/11/18 04:00 Temperature 98.4 F Pulse Rate 54 L 57 L Respiratory Rate 22 15 Blood Pressure 176/76 H Pulse Oximetry 98 01/11/18 06:00 01/11/18 08:00 01/11/18 08:35 Temperature 97.9 F Pulse Rate 58 L 54 L Respiratory Rate 16 Blood Pressure 134/63 Pulse Oximetry 97 98 01/11/18 10:00 01/11/18 12:00 01/11/18 14:00 Temperature Pulse Rate 60 72 88 Respiratory Rate Blood Pressure 157/77 H Pulse Oximetry 94 L 01/11/18 16:00 01/11/18 19:53 Temperature 98.5 F 97.9 F Pulse Rate 71 73 Respiratory Rate 16 18 Blood Pressure 148/70 H 167/86 H Pulse Oximetry 95 95 Intake & Output 01/11/18 01/11/18 01/12/18 06:59 18:59 06:59 Intake Total 100 / 100 740 / 740 Output Total 700 / 700 1000 / 1000 Balance -600 / -600 -260 / -260 Weight 75.3 kg Intake: IV 100 / 100 Ofirmev Inj 1,000 mg In 100 ml 100 / 100 @ 400 mls/hr IV.SIG Q6H PRN Rx# :[id number] Oral 740 / 740 Output: Urine Amount (Catheter) 700 / 700 1000 / 1000 Indwelling Urethral Catheter 700 / 700 1000 / 1000 Result Diagrams: 01/11/18 03:21 01/11/18 03:50 Objective Remarks: GENERAL: 67 year old well nourished female lying in bed with halo in place. SKIN: Warm and dry. HEAD: Normocephalic. Halo in place, pin sites clean. CARDIOVASCULAR: Regular rate and rhythm. RESPIRATORY: No accessory muscle use. Clear and diminished to auscultation. Breath sounds equal bilaterally. GASTROINTESTINAL: Abdomen soft, non-tender, nondistended. + BS MUSCULOSKELETAL: Extremities without cyanosis, or edema noted. MAEW, + perfused NEUROLOGICAL: Alert and confused. Normal speech. Assessment and Plan Plan: [place]: Fell from the standing position. Trauma transfer. INJURIES: C2 fx with 6mm of displacement PMHx: Dementia, HTN, DM, depression C2 fx Neurosurgery consulted 01/10: Halo placement Neuro intact- MAEW Pin care BID Pain control Bowel regimen DC Travis OOB- PT/OT ordered Rehab placement Dementia with visual disturbances Psych consulted Recommended Seroquel 25mg QID Ativan 0.5mg BID PRN Plan of care discussed with patient and daughter at bedside. Collaborating trauma MD agrees with plan. Case management consulted to assist with discharge planning.
[2018-01-11] MEDS: Chlorhexidine Gluconate 2% 1 Pack (2 Cloths) TOPICAL SCH (21:23)
[2018-01-12] MEDS: Chlorhexidine Gluconate 2% 1 Pack (2 Cloths) TOPICAL SCH (05:34)
[2018-01-12] MEDS: Insulin NovoLIN Regular Correctional Sugar Inj SQ SCH ×4 (08:43→23:29)
[2018-01-12] MEDS: Senna/Docusate Sodium 8.6/50 MG Tablet PO SCH ×2 (08:45→23:27)
[2018-01-12] MEDS: QUEtiapine 25 MG Tablet PO SCH ×4 (08:45→23:27)
[2018-01-12] MEDS: amLODIPine 5 MG Tablet PO SCH (08:45)
[2018-01-12] MEDS: Famotidine PF Inj 20 MG/2 ML Vial IV.PUSH SCH (08:45)
[2018-01-12] MEDS: Citalopram 20 MG Tablet PO SCH (08:46)
--- NOTE | 2018-01-12 09:52 | P.PNNS ---
Subjective Interval history: No issues overnight. Has no new neurologic complaints. Has not really started mobilizing much. Physical Exam Vital signs: Vital Signs 01/11/18 10:00 01/11/18 12:00 01/11/18 14:00 Temperature Pulse Rate 60 72 88 Respiratory Rate Blood Pressure 157/77 H Pulse Oximetry 94 L 01/11/18 16:00 01/11/18 19:53 01/11/18 21:34 Temperature 98.5 F 97.9 F Pulse Rate 71 73 65 Respiratory Rate 16 18 18 Blood Pressure 148/70 H 167/86 H Pulse Oximetry 95 95 01/11/18 21:35 01/12/18 00:00 01/12/18 01:44 Temperature 97.5 F L Pulse Rate 70 Respiratory Rate 18 16 Blood Pressure 162/83 H Pulse Oximetry 95 95 01/12/18 04:00 01/12/18 08:00 01/12/18 08:05 Temperature 97.2 F L 98.5 F Pulse Rate 72 70 Respiratory Rate 16 18 Blood Pressure 177/73 H 158/77 H Pulse Oximetry 95 95 95 Intake & Output 01/11/18 01/12/18 01/12/18 18:59 06:59 18:59 Intake Total 740 / 740 1000 / 1000 Output Total 1000 / 1000 1200 / 1200 Balance -260 / -260 -1200 / -1200 1000 / 1000 Weight 74.4 kg Intake: IV 1000 / 1000 NS Inj 1,000 ML @ 84 mls/hr IV. 1000 / 1000 CONT .[id number] [facility] Rx#:[id number] Oral 740 / 740 Output: Urine Amount (Catheter) 1000 / 1000 1200 / 1200 Indwelling Urethral Catheter 1000 / 1000 Straight 1200 / 1200 - Routine Neurological Exam Alert and conversant. Face is symmetric. Pupils equal. Follows commands briskly 4, appears to have baseline strength throughout. - Urinary Catheter Management Indwelling Urethral Catheter Cath placed during this visit: yes, but has since been removed by the nurse Reason for continuing: Decision to DC catheter Insertion date: 01/10/18 Insertion time: 00:00 Removal date: 01/11/18 Removal time: 13:15 Straight Cath placed during this visit: yes Reason for continuing: Not indwelling catheter Insertion date: 01/12/18 Insertion time: 05:07 Assessment and Plan - Plan I reviewed radiological studies Cervical Spine CT 01/10/18 00:39 CONCLUSION: 1. Comminuted C2 fracture that is essentially a type II but does have a component that extends left laterally through the foramen transversarium. There is also 6 mm of anterior displacement of the dens relative to the C2 vertebral body. 2. Degenerative changes as detailed above. Neck CTA 01/10/18 00:39 CONCLUSION: 1. 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 The right vertebral artery is the sole supply to the basilar artery. It does contain a 50-60% stenosis at its origin. 2. Stenosis involving the right subclavian artery. 3. Patent carotid arteries bilaterally. 4. See the cervical spine fracture discussed in the CT of the cervical spine report. Neck fluoroscopy 01/10/18 ~7pm Persistent displacement of fracture fragment, but no new malalignment Neuro: neuro checks in a serial fashion. Continue halo vest. Will need serial x-rays over time to ensure that her fracture remains stable and that the odontoid fragment achieves union or stable nonunion. Pulmonary: aggressive pulmonary toilette, nasotracheal suction, and breathing treatments with nebulizers. Daily PT and OT, can advance activity as tolerated. Encouraged her to work with PT to start mobilizing and getting out of bed. GI: Diabetic diet Renal: Continue to monitor closely urine output, BUN and creatinine Endocrine: Continue to Monitor serial Acu checks and SSI as needed in detail ID continue to monitor for signs of infection Continue Protonix for stress ulcer prophylaxis Continue Juan José hose and SCD's for DVT prophylaxis Further recommendations will be provided depending on the patient's clinical evaluation and follow up studies.
--- NOTE | 2018-01-12 10:45 | P.PN ---
Subjective Interval history: More calm today per nursing Denies pain or paresthesias Physical Exam Vital signs: Vital Signs 01/11/18 12:00 01/11/18 14:00 01/11/18 16:00 Temperature 98.5 F Pulse Rate 72 88 71 Respiratory Rate 16 Blood Pressure 157/77 H 148/70 H Pulse Oximetry 94 L 95 01/11/18 19:53 01/11/18 21:34 01/11/18 21:35 Temperature 97.9 F Pulse Rate 73 65 Respiratory Rate 18 18 Blood Pressure 167/86 H Pulse Oximetry 95 95 01/12/18 00:00 01/12/18 01:44 01/12/18 04:00 Temperature 97.5 F L 97.2 F L Pulse Rate 70 72 Respiratory Rate 18 16 16 Blood Pressure 162/83 H 177/73 H Pulse Oximetry 95 95 01/12/18 08:00 01/12/18 08:05 Temperature 98.5 F Pulse Rate 70 Respiratory Rate 18 Blood Pressure 158/77 H Pulse Oximetry 95 95 Intake & Output 01/11/18 01/12/18 01/12/18 18:59 06:59 18:59 Intake Total 740 / 740 1000 / 1000 Output Total 1000 / 1000 1200 / 1200 Balance -260 / -260 -1200 / -1200 1000 / 1000 Weight 74.4 kg Intake: IV 1000 / 1000 NS Inj 1,000 ML @ 84 mls/hr IV. 1000 / 1000 CONT .[id number] [facility] Rx#:[id number] Oral 740 / 740 Output: Urine Amount (Catheter) 1000 / 1000 1200 / 1200 Indwelling Urethral Catheter 1000 / 1000 Straight 1200 / 1200 Narrative: GENERAL: 67-year-old well-nourished female lying in bed with halo in place. SKIN: Warm and dry. HEAD: Normocephalic. Halo, pin sites clean. CARDIOVASCULAR: Regular rate and rhythm. RESPIRATORY: No accessory muscle use. Lungs clear to auscultation. Breath sounds equal bilaterally. GASTROINTESTINAL: Abdomen soft, non-tender, nondistended. + BS. MUSCULOSKELETAL: Extremities without cyanosis, or edema. MAEW, + perfused NEUROLOGICAL: Awake and alert. Normal speech. - Urinary Catheter Management Indwelling Urethral Catheter Cath placed during this visit: yes, but has since been removed by the nurse Reason for continuing: Decision to DC catheter Insertion date: 01/10/18 Insertion time: 00:00 Removal date: 01/11/18 Removal time: 13:15 Straight Cath placed during this visit: yes Reason for continuing: Not indwelling catheter Insertion date: 01/12/18 Insertion time: 05:07 Results - Labs CBC & Chem 7: 01/11/18 03:21 01/11/18 03:50 Laboratory Results - last 24 hr 01/11/18 01/11/18 01/11/18 12:11 16:09 21:07 POC Glucose 113 H 133 H 159 H 01/12/18 07:48 POC Glucose 119 H Microbiology 01/10/18 00:00 Catheterized Urine Urine Culture - Final Proteus mirabilis Assessment and Plan - Plan [place]: Fell from the standing position. Trauma transfer. INJURIES: C2 fx with 6mm of displacement PMHx: Dementia, HTN, DM, depression C2 fx Neurosurgery consulted 01/10: Halo placement Neuro intact- MAEW Pin care BID Pain control Bowel regimen OOB- PT/OT ordered Rehab placement Lovenox 40mg QD Dementia with visual disturbances Psych consulted Recommended Seroquel 25mg QID Ativan 0.5mg BID PRN Plan of care discussed with patient and RN at bedside. Collaborating trauma MD agrees with plan. Case management consulted to assist with discharge planning.
[2018-01-12] MEDS: Enoxaparin Inj 40 MG/0.4 ML Syringe SQ SCH (12:18)
[2018-01-12] MEDS ORDERED: Acetaminophen 325 MG Tablet PO PRN (15:47)
[2018-01-13] MEDS: Chlorhexidine Gluconate 2% 1 Pack (2 Cloths) TOPICAL SCH (05:49)
[2018-01-13] MEDS: Insulin NovoLIN Regular Correctional Sugar Inj SQ SCH ×4 (09:39→23:56)
[2018-01-13] MEDS: QUEtiapine 25 MG Tablet PO SCH ×4 (09:40→22:47)
[2018-01-13] MEDS: amLODIPine 5 MG Tablet PO SCH (09:40)
[2018-01-13] MEDS: Citalopram 20 MG Tablet PO SCH (09:40)
[2018-01-13] MEDS: Enoxaparin Inj 40 MG/0.4 ML Syringe SQ SCH (09:41)
[2018-01-13] MEDS: Senna/Docusate Sodium 8.6/50 MG Tablet PO SCH ×2 (09:41→22:42)
--- NOTE | 2018-01-13 11:00 | P.PNNS ---
Subjective Interval history: 01/13: doing well, uncomfortable in halo. no new neuro complaints. Physical Exam Vital signs: Vital Signs 01/12/18 12:00 01/12/18 16:00 01/12/18 16:05 Temperature 98.3 F 98.4 F Pulse Rate 70 73 Respiratory Rate 18 18 Blood Pressure 119/78 157/72 H Pulse Oximetry 95 95 95 01/12/18 20:00 01/13/18 00:00 01/13/18 04:00 Temperature 98.1 F 98.7 F 98.3 F Pulse Rate 74 71 76 Respiratory Rate 18 18 18 Blood Pressure 118/80 147/84 H 163/77 H Pulse Oximetry 95 95 95 01/13/18 08:25 Temperature 98.0 F Pulse Rate 74 Respiratory Rate 18 Blood Pressure 172/79 H Pulse Oximetry 89 L Intake & Output 01/12/18 01/13/18 01/13/18 18:59 06:59 18:59 Intake Total 1000 / 1000 Output Total 450 / 450 800 / 800 Balance 550 / 550 -800 / -800 Weight 73.8 kg Intake: IV 1000 / 1000 NS Inj 1,000 ML @ 84 mls/hr IV. 1000 / 1000 CONT .[id number] [facility] Rx#:[id number] Output: Urine 800 / 800 Urine Amount (Catheter) 450 / 450 Indwelling Urethral Catheter 450 / 450 Other: Date of Last Bowel Movement 01/12/18 Narrative: halo intact pins sites clear awake alert moves all four extremities off the bed - Urinary Catheter Management Indwelling Urethral Catheter Cath placed during this visit: yes, but has since been removed by the nurse Reason for continuing: Acute urinary retention Insertion date: 01/10/18 Insertion time: 00:00 Removal date: 01/11/18 Removal time: 13:15 Straight Cath placed during this visit: yes, but has since been removed by the nurse Reason for continuing: Acute urinary retention Insertion date: 01/12/18 Insertion time: 15:15 Removal date: 01/12/18 Assessment and Plan - Plan 67 y/o female with odontoid fracture s/p placement of halo brace 01/10/18 plan: cont pin bid cont therapy and rehab efforts encourage to mobilize OOB clear to dc to rehab from [facility] standpoint f/u 3-[address] Johnson office with f/u c-spine xrays
--- NOTE | 2018-01-13 11:19 | P.PN ---
Subjective Interval history: Difficulty voiding yesterday post Travis catheter removal, required straight catheterization 4 without initiation of spontaneous urination Travis catheter replaced Pain controlled Physical Exam Vital signs: Vital Signs 01/12/18 12:00 01/12/18 16:00 01/12/18 16:05 Temperature 98.3 F 98.4 F Pulse Rate 70 73 Respiratory Rate 18 18 Blood Pressure 119/78 157/72 H Pulse Oximetry 95 95 95 01/12/18 20:00 01/13/18 00:00 01/13/18 04:00 Temperature 98.1 F 98.7 F 98.3 F Pulse Rate 74 71 76 Respiratory Rate 18 18 18 Blood Pressure 118/80 147/84 H 163/77 H Pulse Oximetry 95 95 95 01/13/18 08:25 Temperature 98.0 F Pulse Rate 74 Respiratory Rate 18 Blood Pressure 172/79 H Pulse Oximetry 89 L Intake & Output 01/12/18 01/13/18 01/13/18 18:59 06:59 18:59 Intake Total 1000 / 1000 Output Total 450 / 450 800 / 800 Balance 550 / 550 -800 / -800 Weight 73.8 kg Intake: IV 1000 / 1000 NS Inj 1,000 ML @ 84 mls/hr IV. 1000 / 1000 CONT .[id number] [facility] Rx#:[id number] Output: Urine 800 / 800 Urine Amount (Catheter) 450 / 450 Indwelling Urethral Catheter 450 / 450 Other: Date of Last Bowel Movement 01/12/18 Narrative: GENERAL: 67-year-old well-nourished female lying in bed with halo in place. SKIN: Warm and dry. HEAD: Normocephalic. Halo, pin sites clean. EYES: Pupils equal and round. No scleral icterus. ENT: No nasal bleeding or discharge. Mucous membranes pink and moist. NECK: Trachea midline. No JVD. CARDIOVASCULAR: Regular rate and rhythm. RESPIRATORY: No accessory muscle use. Lungs clear to auscultation. Breath sounds equal bilaterally. GASTROINTESTINAL: Abdomen soft, non-tender, nondistended. + BS. MUSCULOSKELETAL: Extremities without cyanosis, or edema. MAEW, + perfused NEUROLOGICAL: Awake and alert. Normal speech. - Urinary Catheter Management Indwelling Urethral Catheter Cath placed during this visit: yes, but has since been removed by the nurse Reason for continuing: Acute urinary retention Insertion date: 01/10/18 Insertion time: 00:00 Removal date: 01/11/18 Removal time: 13:15 Straight Cath placed during this visit: yes, but has since been removed by the nurse Reason for continuing: Acute urinary retention Insertion date: 01/12/18 Insertion time: 15:15 Removal date: 01/12/18 Results - Labs CBC & Chem 7: 01/11/18 03:21 01/11/18 03:50 Laboratory Results - last 24 hr 01/12/18 01/12/18 01/12/18 11:31 16:45 23:29 POC Glucose 202 H 137 H 82 01/13/18 01/13/18 07:16 11:00 POC Glucose 105 136 H Microbiology 01/10/18 00:00 Catheterized Urine Urine Culture - Final Proteus mirabilis Assessment and Plan - Plan [place]: Fell from the standing position. Trauma transfer. INJURIES: C2 fx with 6mm of displacement PMHx: Dementia, HTN, DM, depression C2 fx Neurosurgery consulted 01/10: Halo placement Neuro intact- MAEW Pin care BID Pain control Bowel regimen OOB- PT/OT ordered Rehab placement Lovenox 40mg QD Dementia with visual disturbances Psych consulted Recommended Seroquel 25mg QID Ativan 0.5mg BID PRN Acute urinary retention 01/12: Travis catheter replaced OOB Attempt removal again in a few days Plan of care discussed with patient at bedside. Collaborating trauma MD agrees with plan. Case management consulted to assist with discharge planning. Patient is clear from trauma surgery standpoint to safely discharged to SNF.
[2018-01-13] MEDS: LORazepam 0.5 MG Tablet PO PRN (22:42)
[2018-01-14] MEDS: Chlorhexidine Gluconate 2% 1 Pack (2 Cloths) TOPICAL SCH (07:23)
--- NOTE | 2018-01-14 10:29 | P.PN ---
Subjective Interval history: Trauma PTT: 4 Patient sitting up in bed. No distress noted. Patient thinks that it is July, but knows that she is wrong, but cannot think of what month it is. When asked what year it is. "I am trying to think about it now." Patient denies numbness and tingling. Physical Exam Vital signs: Vital Signs 01/13/18 12:37 01/13/18 15:50 01/13/18 18:14 Temperature 97.5 F L 98.1 F Pulse Rate 68 70 84 Respiratory Rate 16 14 14 Blood Pressure 110/64 141/67 H Pulse Oximetry 92 L 95 91 L 01/13/18 20:00 01/14/18 00:00 01/14/18 04:00 Temperature 97.6 F 97.4 F L 98.2 F Pulse Rate 76 74 64 Respiratory Rate 18 18 18 Blood Pressure 152/70 H 148/68 H 160/70 H Pulse Oximetry 98 98 96 01/14/18 08:00 Temperature 98.3 F Pulse Rate 66 Respiratory Rate 14 Blood Pressure 151/67 H Pulse Oximetry 96 Intake & Output 01/13/18 01/14/18 01/14/18 18:59 06:59 18:59 Intake Total 240 / 240 Output Total 650 / 650 500 / 500 Balance -410 / -410 -500 / -500 Weight 73.8 kg Intake: Oral 240 / 240 Output: Urine 400 / 400 500 / 500 Urine Amount (Catheter) 250 / 250 Straight 250 / 250 Other: # Incontinent Bowel Movements 2 Narrative: GENERAL: This is a 67-year-old female sitting up in bed. No distress noted. SKIN: Warm and dry. HEAD: Atraumatic. Normocephalic. Halo in place. Pin sites intact and clean. EYES: PERRLA ENT: No nasal bleeding or discharge. Mucous membranes pink and moist. NECK: Trachea midline. No JVD. CARDIOVASCULAR: Regular rate and rhythm. RESPIRATORY: No accessory muscle use. Lungs are clear to auscultation. Breath sounds equal bilaterally. No distress or dyspnea. GASTROINTESTINAL: BS + x 4 quads. Abdomen soft, non-tender, nondistended. MUSCULOSKELETAL: Extremities without cyanosis, or edema. + peripheral pulses x 4 extremities. Warm with good capillary refill and sensation. MAEW. NEUROLOGICAL: Awake and alert x 1. Slight garbled speech at times. - Urinary Catheter Management Indwelling Urethral Catheter Cath placed during this visit: yes, but has since been removed by the nurse Reason for continuing: Acute urinary retention Insertion date: 01/10/18 Insertion time: 00:00 Removal date: 01/11/18 Removal time: 13:15 Straight Cath placed during this visit: yes, but has since been removed by the nurse Reason for continuing: Acute urinary retention Insertion date: 01/12/18 Insertion time: 15:15 Removal date: 01/12/18 Results - Labs CBC & Chem 7: 01/11/18 03:21 01/11/18 03:50 Laboratory Results - last 24 hr 01/13/18 01/13/18 01/13/18 11:00 16:51 23:02 POC Glucose 136 H 150 H 118 H Assessment and Plan - Assessment (1) C2 cervical fracture Code(s): S12.100A - Unspecified displaced fracture of second cervical vertebra, initial encounter for closed fracture Status: Acute (2) Dementia with behavioral disturbance Code(s): F03.91 - Unspecified dementia with behavioral disturbance Status: Acute - Plan [place]: This is a 67-year-old female who fell from a standing position. Questionable LOC. She was a trauma transfer. INJURIES: C2 fx with 6mm of displacement Procedures: 01/10: Halo placement Consults: Neurosurgery. Psychiatry. Case management. Diet: Regular diet. Tolerating po diet. Encourage good po intake with each meal. Pulmonary: Encourage good pulmonary toileting. IS at bedside and pt encouraged to use. Rationale for use explained to patient, and verbalized understanding. Nebs PRN. PAIN Management: PO Tylenol Activity: OOB. PT and OT ordered GI prophylaxis: Not indicated at this time. Bowel regimen: Magalie-colace. MOM PRN. Lactulose PRN. SEnna PRN. Bisacodyl PRN. LBM: 01/14. DVT prophylaxis: Mechanical VTE with SCDs. Chemical management with Lovenox 40 mg QD SQ. DC Planning: Case management consulted for assistance with final discharge disposition. Pt is clear from a trauma surgery standpoint to DC to rehab / SNF once authorization has been obtained. Emotional support provided to patient at bedside and plan of care discussed. Discussed with RN at bedside. Discussed pt condition and plan of care with collaborating trauma surgeon. Patient is hemodynamically stable and being managed on the med/surg floor. The trauma team will round each day, and evaluate plan of care on a daily basis. C2 fx Neurosurgery consulted and assisting in management and care 01/10: Halo placement Neuro intact- MAEW - No numbness and tingling Pin care BID per NS Pain management Bowel regimen Encourage OOB- PT/OT ordered Pt will require Rehab / SNF placement DVT prophylaxis with Lovenox 40mg QD Dementia with visual disturbances Psych consulted and assisting in management and care Recommended Seroquel 25mg QID Ativan 0.5mg BID PRN HTN DM Vitals q 4h ADA diet Losartan 100mg QD Toprol XL 50mg QD. Norvasc 5mg QD Enalaprilat PRN Acute urinary retention 01/12: Chance catheter replaced Encourage OOB Attempt removal again in a few days, however may DC to rehab /SNF with chance in place patient seen at bedside halo in place nsg recs keep chance due to retention d/c plan to snf - Attending Attestation The exam, history, and the medical decision-making described in the above note were completed with the assistance of the mid-level provider. I reviewed and agree with the findings presented. I attest that I had a [id number] encounter with the patient on the same day, and personally performed and documented my assessment and findings in the medical record. (1) C2 cervical fracture Qualifiers: Encounter type: initial encounter Fracture type: closed Fracture morphology : unspecified fracture morphology Fracture alignment: displaced Qualified Code (s): S12.100A - Unspecified displaced fracture of second cervical vertebra, initial encounter for closed fracture (2) Dementia with behavioral disturbance Qualifiers: Dementia type: Alzheimer's disease Alzheimer's disease onset: other onset Qualified Code(s): G30.8 - Other Alzheimer's disease; F02.81 - Dementia in other diseases classified elsewhere with behavioral disturbance
[2018-01-14] MEDS: Enoxaparin Inj 40 MG/0.4 ML Syringe SQ SCH (10:32)
[2018-01-14] MEDS: Citalopram 20 MG Tablet PO SCH (10:33)
[2018-01-14] MEDS: Senna/Docusate Sodium 8.6/50 MG Tablet PO SCH (10:33)
[2018-01-14] MEDS: LORazepam 0.5 MG Tablet PO PRN (10:33)
[2018-01-14] MEDS: amLODIPine 5 MG Tablet PO SCH (10:33)
[2018-01-14] MEDS: Insulin NovoLIN Regular Correctional Sugar Inj SQ SCH ×2 (10:34→16:47)
[2018-01-14] MEDS: QUEtiapine 25 MG Tablet PO SCH ×3 (10:36→17:58)
[2018-01-14 16:15] VITALS: BP 145/61; PULSE 69; RESP 18; TEMP 97.6; O2SAT 97
--- NOTE | 2018-01-15 15:12 | P.DS ---
Date of admission: 01/10/18 00:39 Primary care physician: Kalia Gomes Attending physician on discharge: Kavin Bro Anticipated date of discharge: 01/14/18 Brief History from admission: Fall. DS: Diagnosis - Discharge Diagnosis (1) C2 cervical fracture Status: Acute (2) Dementia with behavioral disturbance Status: Acute DS: Summary Hospital Course: [place]: This is a 67-year-old female who fell from a standing position. Questionable LOC. She was a trauma transfer. INJURIES: C2 fx with 6mm of displacement Procedures: 01/10: Halo placement Consults: Neurosurgery. Psychiatry. Case management. The patient is now tolerating a po diet. Eating and drinking well. Pain is being managed well with PO pain medications, and all medications will continue at rehab. (NO driving while taking narcotic pain medication enforced to patient.) Pt is having regular bowel movements, and have recommended to patient to continue with stool softeners while taking narcotic pain medications to prevent constipation. Pt has been participating in PT and OT while admitted at [place] and has been ambulating with their assistance . Pt and OT will continue at rehab. All follow up appointments have been provided and discussed with the patient. It is recommended that the patient keeps all his follow up appointments for continued recovery. Patient's condition and plan of care discussed with collaborating trauma surgeon. He is agreeable to plan for discharge today. Therefore, the patient is stable to be safely discharged to rehab from a trauma surgery standpoint. Thank you for allowing us to participate in her care. We wish Esthela the best in her recovery. C2 fx Neurosurgery consulted and assisting in management and care 01/10: Halo placement Neuro intact- MAEW - No numbness and tingling Pin care BID per NS Pain management Bowel regimen Encourage OOB- PT/OT ordered Pt will require Rehab / SNF placement DVT prophylaxis with Lovenox 40mg QD F/U w/ NS outpatient Dementia with visual disturbances Psych consulted and assisting in management and care Recommended Seroquel 25mg QID Ativan 0.5mg BID PRN HTN DM Vitals q 4h ADA diet Losartan 100mg QD Toprol XL 50mg QD. Norvasc 5mg QD Enalaprilat PRN Acute urinary retention 01/12: Chance catheter replaced Encourage OOB Attempt removal again in a few days, however may DC to rehab /SNF with chance in place - Time Spent with Patient Total time spent providing and/or coordinating discharge services: Greater than 30 minutes - Quality: VTE Deep Vein Thrombosis/Pulmonary Embolism Present on Admission: No Exam Vital signs: Vital Signs 01/14/18 16:00 Temperature 97.6 F Pulse Rate 69 Respiratory Rate 18 Blood Pressure 145/61 H Pulse Oximetry 97 Intake & Output 01/14/18 01/15/18 01/15/18 18:59 06:59 18:59 Other: Date of Last Bowel Movement 01/12/18 Narrative: GENERAL: This is a 67-year-old female sitting up in bed. No distress noted. SKIN: Warm and dry. HEAD: Atraumatic. Normocephalic. Halo in place. Pin sites intact and clean. EYES: PERRLA ENT: No nasal bleeding or discharge. Mucous membranes pink and moist. NECK: Trachea midline. No JVD. CARDIOVASCULAR: Regular rate and rhythm. RESPIRATORY: No accessory muscle use. Lungs are clear to auscultation. Breath sounds equal bilaterally. No distress or dyspnea. GASTROINTESTINAL: BS + x 4 quads. Abdomen soft, non-tender, nondistended. MUSCULOSKELETAL: Extremities without cyanosis, or edema. + peripheral pulses x 4 extremities. Warm with good capillary refill and sensation. MAEW. NEUROLOGICAL: Awake and alert x 1. Slight garbled speech at times. Results Procedures completed during hospitalization: Halo placement - Impressions ITS Impressions Cervical Spine X-Ray 01/10/18 00:00 CONCLUSION: Malalignment at the dens. This was seen on the prior CT examination. Cervical Spine CT 01/10/18 00:39 CONCLUSION: 1. Comminuted C2 fracture that is essentially a type II but does have a component that extends left laterally through the foramen transversarium. There is also 6 mm of anterior displacement of the dens relative to the C2 vertebral body. 2. Degenerative changes as detailed above. Neck CTA 01/10/18 00:39 CONCLUSION: 1. 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 The right vertebral artery is the sole supply to the basilar artery. It does contain a 50-60% stenosis at its origin. 2. Stenosis involving the right subclavian artery. 3. Patent carotid arteries bilaterally. 4. See the cervical spine fracture discussed in the CT of the cervical spine report. Discharge Plan - Discharge Disposition Patient Disposition: Discharge to SNF - Discharge Condition Condition: Stable - Discharge Order Discharge Orders: Discharge Order (Routine); Ordered 01/13/18 Ordered By: Marcio Molina - Discharge Details Discharge Comment: DC with Chance catheter - Physicians Team Attending Provider: Charlotte Keita Other Providers: Yifan Johnson MD ; Jaxson Renee MD ; Celso Marin MD ; [employer] [facility] ; Robert Hodges MD ; Chana Mcpherson ARNP ; Kavin Bro MD ; Charlotte Keita MD ; Marcio Molina ARNP ; Joana Wen MD ; Jack Titus MD ; [facility]
== END 2018-01-14 18:17 ==
LOC: NEPE 00:14 → NEDA 00:39 → N03 02:07 → N05 01-11 16:49
PROVIDERS: ADMIT Surgery Trauma Surgery; ATTEND Surgery Trauma Surgery